=== PATIENT | female | born 1980 | race Caucasian/White ===

== ENCOUNTER 2020-01-06 18:46 | Emergency (ER) | payer MEDICARE ==
[~2020-01-06] VITALS: Ht 160 cm; Wt 117.9 kg
--- NOTE | 2020-01-06 19:32 | Emergency Department Note ---
History of Present Illnes History of Present Illness Chief Complaint: Back Pain History of Present Illness This is a 39 year old female, with no significant past medical history, who presents with a 2 day history of acute left-sided low back pain. 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 She occasionally has some pain in her back, but she has not had any history of chronic back pain or pain to this degree. She states that the pain is located to the left of the mid lumbar spine, in the paraspinal muscles, and radiates down into the upper buttock, and down the left lower extremity. Pain is worse if she lifts the left leg and with any movement. She denies any numbness, tingling, lower extremity weakness, or bowel or bladder incontinence. She has been taking ibuprofen 800 mg twice daily, without relief of the pain. Patient's adult son drove her to the ED, and assisted her inside, using one of our wheelchairs. 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 Tender Required: No Onset (how long ago): day(s) (2) Location: left low back Quality: sharp, stabbing, tight Radiation: Reports extremity (LLE) Severity: severe (10) Onset quality: sudden Duration (how long): day(s) (2) Timing of current episode: constant Progression: worsening Chronicity: new Context: Denies recent illness, Denies recent surgery, Denies trauma/injury Relieving factors: none Exacerbating factors: movement Associated symptoms: Denies fever/chills, Denies nausea/vomiting, Denies weakness Treatments prior to arrival: other (Tylenol) Risk factors: morbid obesity Past Medical/Family History Physician Review I have reviewed the patient's past medical and family history. Any updates have been documented here. Past Medical History Recent Fever: No Clinical Suspicion of Infectio: No New/Unexplained Change in Ment: No Past Medical History: None Past Surgical History: None Social History Smoking Cessation: Current every day smoker Alcohol Use: Occasional Any Illegal Drug Use: Yes (marijuana) TB Exposure/Symptoms: No Physically hurt or threatened: No Family History Family history of heart diseas: No Other Last Tetanus: unknown Any Pre-Existing Lines (PICC,: No Is patient up to date on immun: No Review of Systems Review of Systems Constitutional: Reports no symptoms EENTM: Reports no symptoms Cardiovascular: Reports no symptoms Respiratory: Reports no symptoms Gastrointestinal: Reports no symptoms Genitourinary: Reports no symptoms (no bowel of bladder incontinence) Musculoskeletal: Reports as per HPI Integumentary: Reports no symptoms Neurological: Denies numbness, Denies paresthesia, Denies pre-existing deficit, Denies tingling, Denies weakness Psychological: Reports no symptoms Review of other systems: All other systems negative Physical Exam Related Data Allergies: Coded Allergies: No Known Allergies (Unverified , 01/06/20) Vital signs reviewed: Yes Physical Exam CONSTITUTIONAL Constitutional: Present well-developed, Present well-nourished, Present morbidly obese HENT HENT: Present normocephalic, Present atraumatic, Present oropharynx clear/moist, Present nose normal HENT L/R: Present left ext ear normal, Present right ext ear normal EYES Eyes: Reports PERRL, Reports conjunctivae normal NECK Neck: Present ROM normal PULMONARY Pulmonary: Present effort normal, Present breath sounds normal CARDIOVASCULAR Cardiovascular: Present regular rhythm, Present heart sounds normal, Present capillary refill normal, Present normal rate GASTROINTESTINAL GENITOURINARY SKIN Skin: Present warm, Present dry MUSCULOSKELETAL Musculoskeletal: Present tenderness (tenderness to palpation of the left mid lumbar paraspinal muscles and left upper gluteus; there is no tenderness in the left sciatic notch, and no thoracic or lumbar vertebral point tenderness.) NEUROLOGICAL Neurological: Present alert, Present oriented x 3, Present abnormal gait (difficulty standing, due to the pain); Absent sensory deficit PSYCHOLOGICAL Results Laboratory Lab results reviewed: Yes Laboratory comments UA - neg except for trace leuk. UPT - negative; Assessment & Plan Medical Decision Making MDM -Discussed with patient that her pain is located in the soft tissue of the lumbar paraspinal muscles, and that a plain x-ray is unlikely to be revealing as to the etiology of her symptoms. She denies any specific known injury, and there is no vertebral point tenderness. It seems that she's having some muscle spasm, which is contributing to her pain, and likely the radicular symptoms. Patient's pain improved dramatically following the dose of Toradol, cyclobenzaprine, and Starke here in the ED. Her pain is down to a 6 out of 10, shortly after receiving the medications. She was grateful for the relief, and appeared much more comfortable. - No work for the next 3 days - Avoid lifting anything more than 10 pounds, until her back pain subsides. - Take medications as directed. Pain medications may cause constipation, so please increase her fluid intake, fiber intake, and use a stool softener if needed. - Apply ice to the area of pain in her back for 20 minutes every 3-4 hours, as needed, for the next 2 days, and then you may use heat. - Return to the ER if your symptoms worsen. Assessment & Plan Final Impression: (1) Low back pain (2) Lumbar radiculopathy, acute (3) Muscle spasm of back Depart Disposition: HOME, SELF-longterm Meds Active Scripts Naproxen (NAPROXEN) 250 Mg Tablet, 500 MG PO BID for back pain, #30 TAB 0 Refills Prov:JOSHUA ROMAN MD 01/06/20 Cyclobenzaprine Hcl (CYCLOBENZAPRINE HCL) 10 Mg Tablet, 10 MG PO TID PRN for muscle spasm, #20 TAB 0 Refills Prov:JOSHUA ROMAN MD 01/06/20 Acetaminophen With Codeine (TYLENOL WITH CODEINE #3 TABLET) 1 Each Tablet, 1-2 TAB PO Q6H for pain, #20 TAB 0 [address]ills [address] take and drive or operate machinery Prov:JOSHUA ROMAN MD 01/06/20 JOSHUA ROMAN MD Jan 06, 2020 19:32
[2020-01-06] MEDS ORDERED: KETOROLAC TROMETHAMINE 30 MG/ML VIAL IM ONE (20:00)
[2020-01-06] MEDS ORDERED: HYDROCODONE/APAP 5MG-325MG TAB PO ONE (20:00)
[2020-01-06] MEDS ORDERED: CYCLOBENZAPRINE HCL 10 MG TAB PO ONE (20:00)
[2020-01-06] MEDS ORDERED: HYDROCODONE/APAP 5MG-325MG TAB ONE (20:03)
[2020-01-06] MEDS ORDERED: CYCLOBENZAPRINE HCL 10 MG TAB ONE (20:03)
[2020-01-06] MEDS ORDERED: KETOROLAC TROMETHAMINE 60 MG/2 ML VIAL ONE (20:03)
--- OUTSIDE RECORDS SUMMARY | 2020-01-06 20:06 | XMS REPORT | Summary of Care ---
Author Author [facility] - Health Organization [facility] - Health Address Unknown Phone Unavailable Care Team Providers Care Ham Doctor Name Role Phone Ebony Palacios [facility] PCP [phone] Reason for Visit * Reason Comments Lab Results Encounter Details Care Team Description Date Type Department Ebony Palacios, [facility] [address] [place] [address] Lab Results 01/06/[address], [address] [place] [address] Allergies No Known Allergiesdocumented as of this encounter (statuses as of 01/06/2020) Medications End Date Status Medication Sig Dispensed Refills Start Date 01/13/2020 Active metroNIDAZOLE 500 mg Take 1 tablet 14 tablet 0 tabletIndications: BV by mouth 2 0 (bacterial vaginosis) (two) times daily for 7 days. documented as of this encounter (statuses as of 01/06/2020) Active Problems Problem Noted Date BMI 45.0-49.9, adult 01/05/2020 Family history of diabetes mellitus 01/05/2020 History of anxiety 01/05/2020 History of depression 01/05/2020 Tobacco use disorder 01/05/2020 Excessive or frequent menstruation 01/05/2020 documented as of this encounter (statuses as of 01/06/2020) Social History Date Tobacco Use Types Packs/Day Years Used Current Every Day Smoker Cigarettes 0.25 27 Smokeless Tobacco: Never Used Drinks/Week oz/Week Comments Alcohol Use 2 Glasses of wine 2.0 Yes Sex Assigned at Date Recorded Not on file Date Recorded COVID-19 Exposure Response 01/05/2020 1:53 PM CDT In the last month, have you been in contact with No / Unsure someone who was confirmed or suspected to have Coronavirus / COVID-19? documented as of this encounter Last Filed Vital Signs Not on filedocumented in this encounter Plan of Treatment Care Team Description Date Type Specialty Loraine Moon, LIZBETH [address] [address] [phone] 01/20/2020 Office Visit OB [facility] Maintenance Due Date Last Done Comments PNEUMOCOCCAL 0-64 YEARS 1985 COMBINED SERIES (1 of 1 - PPSV23) DTaP,Tdap,and Td Vaccines 1998 (1 - Tdap) PAP SMEAR 02/18/2000 Breast Cancer Screening 2019 (MAMMOGRAM) INFLUENZA VACCINE (#1) 2020 Depression Screening 01/04/2021 01/05/2020 documented as of this encounter Results Not on filedocumented in this encounter Visit Diagnoses Diagnosis BV (bacterial vaginosis) - Primary Vaginitis and vulvovaginitis, unspecifi ed documented in this encounter Insurance Type Payer Benefit Subscriber ID Effective Phone Address Plan / Dates Group Medicaid [employer] [place] [employer] [id number] 2019-P [phone] [address] [place] [id number] [place] [address] Medicaid [employer] [place] [employer] [id number] 2019-P [phone] [address] [place] [address] documented as of this encounter
--- OUTSIDE RECORDS SUMMARY | 2020-01-06 20:06 | XMS REPORT | Continuity of Care Document ---
Author Author [facility] Organization [facility] Address [address] [place] [address] Phone Unavailable Care Team Providers Care Systems Consultant Name Role Phone Ce Thompson [employer] [phone] Problems This patient has no known problems. Allergies, Adverse Reactions, Alerts This patient has no known allergies or adverse reactions. Medications This patient has no known medications. Procedures This patient has no known procedures. Encounters Start Date/Time End Date/Time Encounter Type Admission Type [facility] Care Department Encounter ID Source 2020-01-06 00:00:00 2020-01-06 00:00:00 Telephone Ebony Estrella [facility] HALL MANAGER [facility] [id number] 2020-01-05 13:50:42 2020-01-05 15:07:14 Office Visit Ebony Del Cid [facility] HALL MANAGER [facility] [id number] Results This patient has no known results.
--- OUTSIDE RECORDS SUMMARY | 2020-01-06 20:06 | XMS REPORT | Summary of Care ---
Author Author [facility] - [facility] Organization [facility] - [facility] Address Unknown Phone Unavailable Care Team Providers Care Hazardous Materials Handler Name Role Phone Pcp, Patient Does Not Have A PCP Encounter Details Care Team Description Date Type Department Doctor Unassigned, [place] [address] [place] [phone] 01/05/2020 Orders Only [facility] [address] [place] [address] Allergies No Known Allergiesdocumented as of this encounter (statuses as of 01/05/2020) Medications End Date Status Medication Sig Dispensed Refills Start Date Active triamcinolone acetonide Apply to 15 g 0 0.1 % creamIndications: area(s) 2 9 Impetigo any site (two) times daily. Active mupirocin 2 % Apply to 22 g 0 ointmentIndications: area(s) 3 9 Impetigo any site (three) times daily. Active acetaminophen-codeine Take 1 tablet 10 tablet 0 (TYLENOL-CODEINE #3) by mouth 9 300-30 mg every 4 tabletIndications: (four) hours Impetigo any site as needed for Pain (scale 4-6). documented as of this encounter (statuses as of 01/05/2020) Active Problems Not on filedocumented as of this encounter (statuses as of 01/05/2020) Social History Date Tobacco Use Types Packs/Day Years Used Never Assessed Sex Assigned at Date Recorded Not on file Date Recorded COVID-19 Exposure Response 01/05/2020 1:36 PM CDT In the last month, have you been in contact with No / Unsure someone who was confirmed or suspected to have Coronavirus / COVID-19? documented as of this encounter Last Filed Vital Signs Not on filedocumented in this encounter Plan of Treatment Care Team Description Date Type Specialty Ebony Palacios, [employer] [address] [place], [place] [id number] 01/05/2020 Office Visit OB [facility] Maintenance Due Date Last Done Comments Depression Screening 1991 DTaP,Tdap,and Td Vaccines 1998 (1 - Tdap) PAP SMEAR 02/18/2000 Breast Cancer Screening 2019 (MAMMOGRAM) INFLUENZA VACCINE (#1) 2020 PNEUMOCOCCAL 0-64 YEARS Aged Out No longer elig ible based on patient's age to COMBINED SERIES complete this topic documented as of this encounter Procedures Comments Procedure Name Priority Date/Time Associated Diag nosis ASSIGNMENT OF BENEFITS Routine 01/05/2020 1:38 PM CDT documented in this encounter Results Not on filedocumented in this encounter Insurance Type Payer Benefit Subscriber ID Effective Phone Address Plan / Dates Group Medicaid [employer] [place] [employer] [id number] 2019-P [phone] [place] [id number] [place] [address] documented as of this encounter
--- OUTSIDE RECORDS SUMMARY | 2020-01-06 20:06 | XMS REPORT | Summary of Care ---
Author Author [facility] - Health Organization [facility] - [facility] Address Unknown Phone Unavailable Care Team Providers Care Production Floater Name Role Phone Ebony Palacios [facility] PCP [phone] Reason for Referral * Radiology Services (Routine) Referred By Contact Referred To Contact Status Reason Specialty Diagnoses / Procedures Ebony Palacios [address] [address] New Request Diagnostic Diagnoses Radiology Excessive or frequent menstruation P rocedures US TRANSVAGINAL * Radiology Services (Routine) Referred By Contact Referred To Contact Status Reason Specialty Diagnoses / Procedures Ebony Palacios [address] [phone] New Request Diagnostic Diagnoses Radiology Breast cancer screening P rocedures BI SCREENING MAMMOGRAM BILATERAL Reason for Visit * Reason Comments ANNUAL EXAM Encounter Details Care Team Description Date Type Department Ebony Palacios [facility] [address] [place] [address] Encounter for other general counseling o r advice on contraception (Primary Dx); Well woman exam; Screening examination for STD (sexually transmitted disease); BMI 45.0-49.9, adult; Breast cancer screening; Excessive or frequent menstruation; Vaginal odor; Tobacco use disorder; History of depression; History of anxiety; Family history of diabetes mellitus; Abdominal pain, periumbilical 01/05/2020 Office Visit [facility] [address], [address] [place] [address] Allergies No Known Allergiesdocumented as of this encounter (statuses as of 01/05/2020) Medications End Date Status Medication Sig Dispensed Refills Start Date 01/05/2020 Discontinued (Condition no l onger warrants) triamcinolone acetonide Apply to 15 g 0 0.1 % creamIndications: area(s) 2 9 Impetigo any site (two) times daily. 01/05/2020 Discontinued (Condition no l onger warrants) mupirocin 2 % Apply to 22 g 0 ointmentIndications: area(s) 3 9 Impetigo any site (three) times daily. 01/05/2020 Discontinued (Condition no l onger warrants) acetaminophen-codeine Take 1 tablet 10 tablet 0 (TYLENOL-CODEINE #3) by mouth 9 300-30 mg every 4 tabletIndications: (four) hours Impetigo any site as needed for Pain (scale 4-6). documented as of this encounter (statuses as of 01/05/2020) Active Problems Problem Noted Date BMI 45.0-49.9, adult 01/05/2020 Family history of diabetes mellitus 01/05/2020 History of anxiety 01/05/2020 History of depression 01/05/2020 Tobacco use disorder 01/05/2020 Excessive or frequent menstruation 01/05/2020 documented as of this encounter (statuses as of 01/05/2020) Social History Date Tobacco Use Types Packs/Day Years Used Current Every Day Smoker Cigarettes 0.25 27 Smokeless Tobacco: Never Used Tobacco Cessation: Ready to Quit: No; Co unseling Given: Yes Drinks/Week oz/Week Comments Alcohol Use 2 Glasses of wine 2.0 Yes Sex Assigned at Date Recorded Not on file Date Recorded COVID-19 Exposure Response 01/05/2020 1:53 PM CDT In the last month, have you been in contact with No / Unsure someone who was confirmed or suspected to have Coronavirus / COVID-19? documented as of this encounter Last Filed Vital Signs Reading Time Taken Comments Vital Sign 112/52 01/05/2020 1:54 PM CDT Blood Pressure 74 01/05/2020 1:54 PM CDT Pulse 36.9 C (98.5 F) 01/05/2020 1:54 PM CDT Temperature 20 01/05/2020 1:54 PM CDT Respiratory Rate - - Oxygen Saturation - - Inhaled Oxygen Concentration 122.5 kg (270 lb) 01/05/2020 1:54 PM CDT Weight 160 cm (5' 3") 01/05/2020 1:54 PM CDT Height 47.83 01/05/2020 1:54 PM CDT Body Mass Index documented in this encounter Patient Instructions * Patient Instructions* Ebony Palacios, TRACK LAYING SUPERVISOR - 01/05/2020 1:45 PM CDT Patient Education Breast Health: Breast Self-Awareness What is breast self-awareness? Breast self-awareness is knowing how your breasts normally look and feel. Your b reasts change as you go through different stages of your life. So its importa nt to learn what is normal for your breasts. Knowing about your breasts helps yo u spot any changes in them right away. Tell your healthcare provider about any c hanges. Why is breast self-awareness important? Many experts now say that women should focus on breast self-awareness instead of doing a breast self-examination (BSE). These experts include the [place] [employer] and the [place] [employer] Gynec[employer]. Some exp erts even advise not teaching women to do a BSE. Thats because research hasn t shown a clear benefit to doing BSEs. Breast self-awareness is different than a BSE. It isnt about following a cert ain method and schedule. Its about knowing what's normal for your breasts. Th at way you can spot even small changes right away. If you see any changes, tell your healthcare provider. Changes to look for Call your healthcare provider if you find any changes in your breasts that worry you. These changes may be: A lump Nipple discharge other than breastmilk, especially if it's bloody Swelling A change in size or shape Skin changes, such as redness, thickening, or dimpling of the skin Swollen lymph nodes in the armpit Nipple problems, such as pain or redness If you find a lump Call your provider if you find lumpiness in one breast. Also call if you feel so mething different in the tissue or feel a definite lump. Sometimes lumpiness may be due to menstrual changes. But there may be reason for concern. Your provider may want to see you right away if you have: Nipple discharge that is bloody Skin changes on your breast, such as dimpling or puckering Its okay to be upset if you find a lump. Be sure to call your provider right away. Remember that most breast lumps are benign. This means they are not cancer . Jose last reviewed this educational content on 12/25/201619993768-1120 [employer]. [address] [place] [address] 7. All rights reserved. This information is not intended as a substitute for pro fessional medical care. Always follow your healthcare professional's instruction s. Patient Education 4 Steps for Eating Healthier Changing the way you eat can improve your health. It can lower your cholesterol and blood pressure, and help you stay at a healthy weight. Your diet doesnt h ave to be bland and boring to be healthy. Just watch your calories and follow th maurice steps: Step 1. Eat fewer unhealthy fats Choose more fish and lean meats instead of fatty cuts of meat. Skip butter and lard, and use less margarine. Pass on foods that have palm, coconut, or hydrogenated oils. Eat fewer high-fat dairy foods like cheese, ice cream, and whole milk. Get a heart-healthy cookbook and try some low-fat recipes. Step 2.Go light on salt Keep the saltshaker off the table. Limit high-salt ingredients, such as soy sauce, bouillon, and garlic salt. Instead of adding salt when cooking, season your food with herbs and flavorin gs. Try lemon, garlic, and onion, or salt-free herb seasonings. Limit convenience foods, such as boxed or canned foods and restaurant food. Read food labels and choose lower-sodium options. Step 3. Limit sugar Pause before you add sugars to pancakes, cereal, coffee, or tea. This include s white and brown table sugar, syrup, honey, and molasses. Cut your usual amount by half. Use non-sugar sweeteners. Stevia, aspartame, and sucralose can satisfy a swee t tooth without adding calories. Swap out sugar-filled soda and other drinks. Buy sugar-free or low-calorie be verages. Remember water is always the best choice. Read labels and choose foods with less added sugar. Keep in mind that dairy f oods and foods with fruit will have some natural sugar. Cut the sugar in recipes by 1/3 to 1/2. Boost the flavor with extracts like a lmond, vanilla, or orange. Or add spices such as cinnamon or nutmeg. Step 4. Eatmore fiber Eat fresh fruits and vegetables every day. Boost your diet with whole grains. Go for oats, whole-grain rice, and bran. Add beans and lentils to your meals. Drink more water to match your fiber increase to help prevent constipation. Bucmi last reviewed this educational content on 10/25/201619998029-1927 [employer]. [address] [place] [address] 7. All rights reserved. This information is not intended as a substitute for pro fessional medical care. Always follow your healthcare professional's instruction s. Patient Education Weight Management: Exercise and Activity Studies show that people who exercise are the most likely to lose weight and abida p it off. Exercise saunders calories. It helps build muscle to make your body stron david. Make exercise an important part of your weight-management plan. Make activity part of your day You may not think you have the time to exercise. But you can work activity into your daily lifeyou just need to be committed. Take 10 minutes out of your leatha ch hour to take a walk. Walk to the [employer] to get your paper instead of [employer] g it delivered. Make it a habit to take the stairs instead of the elevator. Park in a far away parking spot instead of the closest. Youll be surprised at how fast these little changes can make a difference. Some people really cannot walk very far, and tire out quickly with exercise. Ins tead of becoming discouraged, resolve to do what you can do, and work to make th at a regular frequent habit. The benefits of exercise Exercise offers many benefits including: Exercise increases your metabolism (the speed at which your body saunders calori es). Regular exercise can increase the amount of muscle in your body. Muscle saunders calories faster than fat. The more muscle you have, the more calories you burn. Exercise gives you energy and curbs your appetite. Exercise decreases stress and helps you sleep better. Find out for yourself w hat time of day works best for you. Make exercise fun Exercise can be fun. Choose an activity you enjoy. You may even get a friend to do it with you: Take a resistance-training or aerobics class Join a team sport Take a dance class Walk the dog Ride a bike If you have health problems, be sure to ask your healthcare provider before you start an exercise program. Have a montessori paraprofessional help you develop a plan t hats safe for you. Bucmi last reviewed this educational content on 08/25/201719996712-2096 [employer]. [address] [place] [address] 7. All rights reserved. This information is not intended as a substitute for pro fessional medical care. Always follow your healthcare professional's instruction s. Patient Education Weight Management: Healthy Eating Food is your bodys fuel. You cant live without it. The dover is to give your body enough nutrients and energy without eating too much. Reading food labels c an help you make healthy choices. Also, learn new eating habits to manage your w eight. Nutrition labels are being redesigned by the FDA to emphasize the number of calories being consumed as well as the amount of more nutrients, such as adde d sugars, vitamin D, and potassium. All the values on the label are based on one serving. The serving size is the av erage portion. Remember to multiply the values on the label by the number of ser vings you eat. Eat less fat A gram of fat has almost2.5 timesthe calories of a gram of protein or carboh ydrates.Try to balance your food choices so that only 20% to35% of your bill tremaine comes from totalfat. This means an average of 2to 3grams of fat f or each 100 calories you eat. Eat more fiber High-fiber foods are digested more slowly than low-fiber foods, so you feel full longer.Try to get at least 25 grams of fiber each day for a 2000 calorie diet. Foods high in fiber include: Vegetables and fruits Whole-grain or bran breads, pastas, and cereals Legumes (beans) and peas As you start to eat more fiber, be sure to drink plenty of water. It will help k eep your digestive system working smoothly. Tips Do's and don'ts include: Dont skip meals. This often leads to overeating later on. Its best to s pread your eating throughout the day. Eat a variety of foods, not just a few favorites. If you find yourself eating when youre not hungry, ask yourself why. Many of us eat when were bored, stressed, or just to be polite. Listen to your bod y. If youre not hungry, get busy doing something else instead of eating. Eat slower, shooting for 20 to 30 minutes for each meal.It takes 20 minutes for your stomach to tell your brain that its full. Slow eaters tend to eat l ess and are still satisfied, while fast eaters may tend to be overeaters. Pay attention to what you eat. Dont read or watch TV during your meal. Bucmi last reviewed this educational content on 08/25/201719995412-9330 [employer]. [address] [place] [address], [place], [place] [address]. All rights reserved. This information is not intended as a substitute for pro fessional medical care. Always follow your healthcare professional's instruction s. Patient Education Weight Management: Overcoming Your Barriers You may have many reasons why youre not ready to lose weight. You may not fee l you have the time or the skills. You may be afraid of losing weight and gainin g it back again. Well, you can lose weight. And you can keep the weight off, if you make changes slowly and stick with them.Remember that you may never find t he perfect time to lose weight. Decide that the right time to be healthier is no w. Common barriers Barrier 1: I dont want to deny myself. Barrier Buster: You dont have to! Moderation is the dover: Watch portion sizes and know when you're eating more than one serving. Plan to ask for a doggy bag when you eat out. Have just one. Read the labels on foods to know what foods may be hiding calories or salt. Choose lower-fat and lower-calorie versions of your favorites. Use a small plate instead of a normal-sized plate. Barrier 2: I lost weight before but I gained it right back. Barrier Buster: Make this time different: List what worked and didnt worklast time and what you can try this time. Choose changes that you are willing to stick with. Work exercise into your weight-loss plan. Be realistic about what is possible.Your plan has to fit into your life in a balanced way that works for you. Barrier 3: I dont have the time to be active. Barrier Buster: It takes just a few minutes a day! Be active with a pet or the kids. Block off activity time in your schedule. Borrow some time that you usually spend watching TV. You are too important not to take time to exerciseit is your life! Feel good about yourself Do you eat more because you feel bad about yourself, then feel even worse as you gain weight? This is a vicious cycle. Breaking this cycle is not easy. You may need group support or counseling. Always remember that you are a valuable person, no matter what size or shape you are. Do you have a health problem? If so, dont use it as an excuse for not losing weight. Ask your healthcare provider or dietitian about methods to lose weight t hat are safe for you. For example, even if you have severe arthritis, it may be easier for you to exercise in a pool. Get advice from a montessori paraprofessional. Bucmi last reviewed this educational content on 08/25/201719998791-1510 [employer]. [address] [place], [place] [address] 7. All rights reserved. This information is not intended as a substitute for pro fessional medical care. Always follow your healthcare professional's instruction s. Patient Education Mammography Mammographyis an X-ray exam of your breast tissue. The image it makes is austin d a mammogram. A mammogram can help find problems with your breasts,such as cy sts or cancer. Mammography is the best breast cancer screening tool available. Be proactive Have screening mammograms and professional breast exams as often as your healthc are provider advises. Also, be sure you know how your breasts normally look and feel. This makes it easier to notice any changes. Report changes to your healthc are provider as soon as possible. How do I get ready for a mammogram? Schedule the test for 1 week after your period.Your breasts are less sore a nd dense then. Make sure your clinic getsimages of your last mammogram if it was done some where else. This lets the provider compare the 2 sets of images for any changes. On the morning of your test,dont use deodorant,powder,or perfume. Wear a top that you can take off easily. What happens during a mammogram? You will need to undress from the waist up. The technologist will position your breast to get the best test results. Each of your breasts will be compressed one at a time. This helps get the mos t complete X-ray image. Your breasts will be repositioned to get at least 2 separate views of each br east. What happens after a mammogram? More X-rays or an ultrasound are sometimes needed. If not done at the time of your initial mammogram, youll be called to schedule them. You should get your test results in writing. Ask about this at your appointme nt. Have mammograms as often as your healthcare provider advises. What to tell your provider Tell your provider if: Youre or think you may be You have breast implants You have any scars or moles on or near your breasts Youve had a breast biopsy or surgery Youre Bucmi last reviewed this educational content on 11/24/201819993772-4173 [employer]. [address] [place] [address] 7. All rights reserved. This information is not intended as a substitute for pro fessional medical care. Always follow your healthcare professional's instruction s. Patient Education Planning to Quit Smoking Your healthcare provider may have told you that you need to give up tobacco. Onl y you can decide if and when you are ready to quit. Quitting is hard to do. But the benefits will be worth it. When youdecide to quit, come up with a plan graciela ts right for you. Discuss your plan with your healthcare provider. And talk w ith your provider about medicines to help you quit. Line up support To quit smoking, youll need a plan and some help. Pick a date in the next 2 t o 4 weeks to quit. Use the time between now and that date to arrange for support . Classes and counselors. Quit-smoking classes transformation coach people like you through e process. Get to know others in a class. And support each other beyond the clas s. Phone counseling also helps you keep on track. Ask your healthcare provider, local hospital, or public health department to put you in touch with a class and a phone counselor. Family and friends. Tell your family and friends about your quit date. Ask th em to support your change. If they smoke, only see them in smoke-free places. Do n't allow smoking in your home and car. Be careful with these products Finding something to replace cigarettes may be hard to do. Some things may be as harmful as cigarettes. These include: Smokeless (chewing) tobacco. This is just as harmful as regular tobacco. Toba client account manager should not be used as a substitute for cigarettes. Herbal medicines or teas. These may affect how your body handles nicotine. Ta lk with your healthcare provider before using these products. E-cigarettes. E-cigarettes are not approved by the FDA as a quit-smoking aid. So far, the research shows there is limited evidence that e-cigarettes are effe ctive for helping smokers quit. They may also have substances that can cause can cer or life-threatening lung conditions. Experts advise not to use these product s. Quit-smoking products Many products can help you quit smoking. Some are prescription medicines that he lp curb your cravings and withdrawal symptoms. Other products slowly lessen the level of nicotine your body absorbs. Nicotine is the highly addictive substance found in cigarettes, cigars, and chewing tobacco. Nicotine replacement products can help get your body used to slowly decreasing amounts of nicotine after you q uit smoking. These products include a nicotine patch, gum, lozenge, nasal spray, and inhaler. Always follow the directions for your medicine or product carefull y. Your healthcare provider may tell you to start taking the prescription medici ne a week before you plan to quit. Don't smoke while you use nicotine products. Doing so can harm your health. To learn more www.cdc.gov/tobacco/quit_smoking/ 395-DCJA-RPO (345-117-5221) www.smokefree.gov 617-23G-PBAN (744-282-3889) www.lung.org/stop-smoking/ 800-LUNGUSA (805-730-5211) Jose last reviewed this educational content on 05/27/201819992785-4669 [employer]. [address] [place] [address], [place] [address]. All rights reserved. This information is not intended as a substitute for pro fessional medical care. Always follow your healthcare professional's instruction s. Patient Education The Benefits of Living Smoke Free What do you want to gain from quitting? Check off some reasons to quit. Health benefits ___ Improve my ability to breathe without coughing or shortness of breath ___ Reduce my risk of lung cancer, heart disease, chronic lung disease ___ Have fewer wrinkles and softer skin ___ Improve my sense of taste and smell ___ For womenreduce the risk of having a miscarriage, stillbirth, premature , or [id number] baby Personal benefits ___ Feel more in control of my life ___ Have better-smelling hair, breath, clothes, home, and car ___ Save time by not having to take smoke breaks, buy cigarettes, or bravo for a light ___ Have whiter teeth Family benefits ___ Reduce my childrens respiratory tract infections ___ Set a good example for my children ___ Reduce my familys cancer risk Financial benefits ___ Save hundreds of dollars each year that would be spent on cigarettes ___ Save money on medical bills ___ Save on life, health, and car insurance premiums Those dollars add up! Cigarettes are expensive, and getting more expensive all the time. Do you realiz e how much money you are spending on cigarettes per year? What is the average am ount you spend on a pack of cigarettes? What is the average number of packs that you smoke per day? Using your answers to these questions, fill in this formula to help you find out: ($ per pack) ( number of packs per day)(365 days) = $ yearly cost of smoking Besides tobacco, there are other costs, including extra cleaning bills and repla cement costs for clothing and furniture; medical expenses for smoking-related il lnesses; and higher health, life, and car insurance premiums. Cigars and pipes count too! Cigars and pipes are also dangerous. So are smokeless (chewing) tobacco and snuf f. All of these products contain nicotine, a highly addictive substance that has harmful effects on your body. Quitting smoking means giving up all tobacco prod ucts. For more information https://smokefree.gov/tdqi-ib-yh-expert National Cancer [place] Smoking Quitline: 195-48T-ZETR (479-441-0846) Jose last reviewed this educational content on 06/27/201619990862-5410 [employer]. [address] [place] [address] 7. All rights reserved. This information is not intended as a substitute for pro fessional medical care. Always follow your healthcare professional's instruction s. documented in this encounter Progress Notes * Ebony Palacios FNP - 01/05/2020 1:45 PM CDT Chief complaint: Chief Complaint Patient presents with ANNUAL EXAM Contraception Patient is here for contraceptive management and well woman visit. The patient's primary symptoms include contraceptive counseling and genital odor. The patient 's pertinent negatives include no breast complaints, genital itching, genital le sions, pelvic pain, vaginal bleeding or vaginal discharge. This is a chronic pro blem. The current episode started more than 1 year ago (2-3 years). The problem has been unchanged. The patient is experiencing no pain. She is not . As sociated symptoms include abdominal pain. Pertinent negatives include no back pa in, chills, constipation, cramps, diarrhea, dyspareunia, dysuria, fever, frequen cy, headaches, hematuria, light-headedness, nausea, rash, sore throat, urgency o r vomiting. Associated symptoms comments: Mood changes associated with frequent menses Burning sensation periumbilical associated with menses. The vaginal discharge wa s normal. The vaginal bleeding is occurring between menses. Nothing aggravates t he symptoms. She has tried nothing for the symptoms. No, her partner does not galindo ve an STD. She uses condoms (considering hormonal control) for contracepti on. Her menstrual history has been irregular. Patient reports sexually active. Histories OB History Para Term AB Living 3 3 3 3 SAB TAB Ectopic Multiple Live Births 3 # Outcome Date GA Lbr Delvin/2nd Weight Sex Delivery Anes PTL Lv 3 Term 01/20/05 40w0d 6 lb 9 oz (2.977 kg) M CS-Unspec EPI N JOAQUIN 2 Term 07/03/02 40w0d 7 lb 9 oz (3.43 kg) M CS-Unspec EPI N JOAQUIN 1 Term 01/08/01 40w0d 7 lb 6 oz (3.345 kg) M CS-Unspec EPI N JOAQUIN Past Medical History: Diagnosis Date Anxiety since child Depression 2017 Family history of diabetes mellitus 01/05/2020 Menstrual disorder Trauma as child Family History Problem Relation Age of Onset Arthritis Mother Diabetes Mother Psychiatry Mother Cancer Father Hypertension Father Arthritis Maternal Grandmother Depression Maternal Grandfather Heart Maternal Grandfather High cholesterol Maternal Grandfather Hypertension Maternal Grandfather Family Status Relation Name Status Mo Fa lung, luekemia MGMo MGFa PGMo PGFa Past Surgical History: Procedure Laterality Date ABDOMEN SURGERY PROC UNLISTED SECTION 2000, 2002, 2004 Social History Socioeconomic History Marital status: Single Spouse name: Not on file Number of children: Not on file Years of education: Not on file Highest education level: Not on file Occupational History Not on file Social Needs Financial resource strain: Not on file Food insecurity Worry: Not on file Inability: Not on file Transportation needs Medical: Not on file Non-medical: Not on file Tobacco Use Smoking status: Current Every Day Smoker Packs/day: 0.25 Years: 27.00 Pack years: 6.75 Types: Cigarettes Smokeless tobacco: Never Used Substance and Sexual Activity Alcohol use: Yes Alcohol/week: 2.0 standard drinks Types: 2 Glasses of wine per week Drug use: Yes Types: Marijuana Comment: daily Sexual activity: Yes Partners: Male control/protection: None Comment: last intercourse: 12/25/2019 Lifestyle Physical activity Days per week: Not on file Minutes per session: Not on file Stress: Not on file Relationships Social connections Talks on phone: Not on file Gets together: Not on file Attends anglican service: Not on file Active member of club or organization: Not on file Attends meetings of clubs or organizations: Not on file Relationship status: Not on file Intimate partner violence Fear of current or ex partner: Not on file Emotionally abused: Not on file Physically abused: Not on file Forced sexual activity: Not on file Other Topics Concern Not on file Social History Narrative States she feels safe at home. Denies sexual abuse and domestic violence. Lives with two sons. Third son given up for adoption day of Social History Substance and Sexual Activity Sexual Activity Yes Partners: Male control/protection: None Comment: last intercourse: 12/25/2019 Labs Labs are pending. Radiology Radiology pending. Allergies Gina has No Known Allergies. Medications Gina currently has no medications in their medication list. Review of Systems Constitutional: Negative for appetite change, chills, fatigue, fever and unexpec crista weight change. HENT: Negative for sore throat. Eyes: Negative for visual disturbance. Respiratory: Negative for shortness of breath. Breasts: Negative for discharge, mass and pain. Cardiovascular: Negative for chest pain. Gastrointestinal: Positive for abdominal pain. Negative for constipation, diarrh ea, nausea and vomiting. Genitourinary: Positive for menstrual problem. Negative for dysuria, urgency, fr equency, hematuria, vaginal bleeding, vaginal discharge, pelvic pain and dyspare unia. Menstrual hx has been irregular for "years" per patient States 2-3 years ago started with menses 3x per month States she will have menses x 7-10 days, stops bleeding for 1 week and then blee ding will restart x 2 days. Flow ranges from light to heavy Associated symptoms: vaginal odor, periumbilical abdominal pain, mood swings Musculoskeletal: Negative for back pain. Skin: Negative for rash. Neurological: Negative for dizziness, syncope, light-headedness and headaches. Psychiatric/Behavioral: Denies depression or domestic violence today States hx of depression/anxiety; diagnosed previously with manic depressive diso rder currently controlled without meds Reports mood swings with menses BP 112/52 | Pulse 74 | Temp 36.9 C (98.5 F) (Oral) | Resp 20 | Ht 5' 3" (1.6 m) | Wt 270 lb (122.5 kg) | BMI 47.83 kg/m Pregravid BMI: Could not be calculated Physical Exam Vitals reviewed. Constitutional: She is oriented to person, place, and time. She appears well-dev eloped, well-nourished and well-groomed. Her body habitus is obese. She has no d eformities. No acute distress Neck: No tenderness and no mass. No thyroid nodules and no thyromegaly palpated. No neck adenopathy. Cardiovascular: Regular rate and rhythm. No murmur auscultated. No peripheral ed adan present. Pulmonary/Chest: Breath sounds clear to auscultation. Normal inspiratory effort. Abdominal: Abdomen is soft. No mass palpated. No tenderness present. There is no hepatosplenomegaly. There is no rigidity and no guarding. No hernia palpated or inspected. Neuro/Psychiatric: She has a normal mood and affect. She is oriented to person, place, and time. Skin: Skin normal. No lesion and no rash present. Lymphadenopathy: No neck adenopathy present. No axillary adenopathy present. Breast: Right breast exhibits no mass, no nipple discharge and no tenderness. Le ft breast exhibits no mass, no nipple discharge and no tenderness. Breasts are s ymmetrical. External genitalia: Normal external genitalia appropriate for age. Normal hair d istribution. No labial lesion. Vagina:Normal vagina. No lesion inspected. No abnormal vaginal discharge found. No lesions in the vagina. Cervix: Normal cervix. No lesion. No tenderness and no discharge present. Uterus: Uterus is normal size and non-tender. Adnexa: Right adnexa without tenderness or mass. Left adnexa without tenderness or mass. Assessment/Plan Encounter for other general counseling or advice on contraception (primary enco unter diagnosis) Comment: see hpi Plan: POCT TEST Continue condoms for now until EMB and USG done. Well woman exam Comment: 39 yo Plan: PAP Smear-Liquid Based, HIGH RISK HPV-THIN PREP, CBC WITH DIFF, RUBELLA SCREEN (JAMIE) IGG, PAP Smear-Liquid Based, HIGH RISK HPV-THIN PREP, CBC WITH DIFF, RUBELLA SCREEN (JAMIE) IGG Encourage green leafy vegetables, lean meats and fruit in diet. Avoid fat ty, fried, sugary foods. Increase H2O intake (1/2 body weight in ozs). Exercis e 30 minutes daily x 7 days/week as tolerated. SBE monthly. Follow up 1 year Screening examination for STD (sexually transmitted disease) Comment: desires testing Plan: GC & CHLAMYDIA AMPLIFIED ASSAY, GALV ONLY - SYPHILIS IGG/IGM, HIV 1/2 AG-AB WITH REFLEX, GC & CHLAMYDIA AMPLIFIED ASSAY, GALV ONLY - SYPHILIS IGG/IGM, HIV 1/2 AG-AB WITH REFLEX Safe sex practices, follow up prn BMI 45.0-49.9, adult Comment: Body mass index is 47.83 kg/m. Plan: GLYCOSYLATED HEMOGLOBIN (A1C), GLYCOSYLATED HEMOGLOBIN (A1C) Diet and exercise counseling, follow up prn Breast cancer screening Comment: 39 year-old No mammogram hx Plan: BI SCREENING MAMMOGRAM BILATERAL Excessive or frequent menstruation Comment: see hpi, ROS Mother at 52 and was still having menstrual cycles Plan: THYROID STIMULATING HORMONE, THYROID STIMULATING HORMONE, US TRANSVAGINAL Labs today, USG ordered, refer for EMB. ER warnings Vaginal odor Comment: see hpi Plan: GALV ONLY - VAGINAL PATHOGENS BY NUCLEIC ACID TESTING Genital hygiene, follow up with results Tobacco use disorder Comment: smokes 3 cigarettes daily Plans to quit, states restarted smoking 3 weeks ago Plan: offer support for cessation, follow up prn History of depression History of anxiety Comment: hx of manic depressive disorder per patient Currently controlled without meds Plan: encouraged consistent with mental health follow ups Family history of diabetes mellitus Comment: see hx Plan: A1C today, diet and exercise Abdominal pain, periumbilical Comment: see hpi, normal exam Plan: relief measures, follow up prn This visit did not involve counseling and coordination that comprised more than 50% of the visit time. SHAY Armas 01/05/2020 3:31 PM * Danielle Phan LVN - 01/05/2020 1:45 PM CDT Gina Alonso is a 39 year old female Pt here for WWE/FP check-up today. LMP: 12/09/2019 previous control: none Desired method: unsure possible condoms Last intercourse: 12/25/2019 Last pap: 2009 C/O: odor for last 2 years and abnormal menses Verbal consent obtained for HIV testing if needed. SBE, STD, and BC booklet reviewed and provided. She is to ask for reference material at check out. She voiced understanding. documented in this encounter Plan of Treatment Care Team Description Date Type Specialty Loraine Moon, LIZBETH [address] [place] [id number] [phone] 01/20/2020 Office Visit OB Satellites Date/Time Name Type Priority Associated Diag noses 01/05/2020 2:59 PM CDT PAP Smear-Liquid Based LAB Routine Well wo man exam 01/05/2020 2:59 PM CDT HIGH RISK HPV-THIN PREP LAB Routine Well w jacinto exam 01/05/2020 2:59 PM CDT GC & CHLAMYDIA AMPLIFIED LAB Routine Scree kaia examination for ASSAY STD (sexually transmitted disease) 01/05/2020 2:59 PM CDT CBC WITH DIFF LAB Routine Well woman exam 01/05/2020 2:59 PM CDT RUBELLA SCREEN (JAMIE) LAB Routine Well wo man exam IGG 01/05/2020 2:59 PM CDT GALV ONLY - SYPHILIS LAB Routine Screening examination for IGG/IGM STD (sexually transmitted disease) 01/05/2020 2:59 PM CDT HIV 1/2 AG-AB WITH REFLEX LAB Routine Scre ening examination for STD (sexually transmitted disease) 01/05/2020 2:59 PM CDT THYROID STIMULATING LAB Routine Excessive or frequent HORMONE menstruation 01/05/2020 2:59 PM CDT GLYCOSYLATED HEMOGLOBIN LAB Routine BMI 45 .0-49.9, adult (A1C) 01/05/2020 2:59 PM CDT GALV ONLY - VAGINAL LAB Routine Vaginal od or PATHOGENS BY NUCLEIC ACID TESTING Order Schedule Name Type Priority Associated Diag noses Expected: 01/05/2020, Expires: 1 BI SCREENING MAMMOGRAM IMAGING Routine Breast cancer screening BILATERAL Expected: 01/05/2020, Expires: 1 PAP Smear-Liquid Based LAB Routine Well wo man exam Expected: 01/05/2020, Expires: 1 HIGH RISK HPV-THIN PREP LAB Routine Well w jacinto exam Expected: 01/05/2020, Expires: 1 GC & CHLAMYDIA AMPLIFIED LAB Routine Scree kaia examination for ASSAY STD (sexually transmitted disease) Expected: 01/05/2020, Expires: 1 CBC WITH DIFF LAB Routine Well woman exam Expected: 01/05/2020, Expires: 1 RUBELLA SCREEN (JAMIE) LAB Routine Well wo man exam IGG Expected: 01/05/2020, Expires: 1 GALV ONLY - SYPHILIS LAB Routine Screening examination for IGG/IGM STD (sexually transmitted disease) Expected: 01/05/2020, Expires: 1 HIV 1/2 AG-AB WITH REFLEX LAB Routine Scre ening examination for STD (sexually transmitted disease) Expected: 01/05/2020, Expires: 1 THYROID STIMULATING LAB Routine Excessive or frequent HORMONE menstruation Expected: 01/05/2020, Expires: 1 GLYCOSYLATED HEMOGLOBIN LAB Routine BMI 45 .0-49.9, adult (A1C) Expected: 01/05/2020, Expires: TRANSVAGINAL IMAGING Routine Excessive or f requent menstruation Health Maintenance Due Date Last Done Comments PNEUMOCOCCAL 0-64 YEARS 1985 COMBINED SERIES (1 of 1 - PPSV23) DTaP,Tdap,and Td Vaccines 1998 (1 - Tdap) PAP SMEAR 02/18/2000 Breast Cancer Screening 2019 (MAMMOGRAM) INFLUENZA VACCINE (#1) 2020 Depression Screening 01/04/2021 01/05/2020 documented as of this encounter Procedures Comments Procedure Name Priority Date/Time Associated Diag nosis POCT TEST Routine 01/05/2020 Encounter for other general counseling or advice on contraception documented in this encounter Results * POCT TEST (01/05/2020) POCT PREG Negative On board Yes controls acceptable with C Line POCT PREG LOT # POCT PREG TEST DATE Specimen Urine - URINE, CLEAN CATCH documented in this encounter Visit Diagnoses Diagnosis Encounter for other general counseling or advice on contraception - Primary BMI 45.0-49.9, adult Body Mass Index 45.0-49.9, adult Excessive or frequent menstruation Vaginal odor Unspecified symptom associated with fem kain genital organs Tobacco use disorder History of depression Personal history of other mental disord er History of anxiety Personal history of other mental disord er Family history of diabetes mellitus Abdominal pain, periumbilical Abdominal pain, periumbilic documented in this encounter Insurance Type Payer Benefit Subscriber ID Effective Phone Address Plan / Dates Group Medicaid [facility] [id number] 2019-P [phone] [id number] [place] [address] documented as of this encounter
--- OUTSIDE RECORDS SUMMARY | 2020-01-06 20:06 | XMS REPORT | Summary of Care ---
Author Author [facility] - Health Organization [facility] - [facility] Address Unknown Phone Unavailable Care Team Providers Care Pmp Project Manager Name Role Phone Ebony Palacios [facility] PCP [phone] Reason for Referral * Radiology Services (Routine) Referred By Contact Referred To Contact Status Reason Specialty Diagnoses / Procedures Ebony Palacios [address] [address] New Request Diagnostic Diagnoses Radiology Excessive or frequent menstruation P rocedures US TRANSVAGINAL * Radiology Services (Routine) Referred By Contact Referred To Contact Status Reason Specialty Diagnoses / Procedures Ebony Palacios [address] [address] New Request Diagnostic Diagnoses Radiology Breast cancer screening P rocedures BI SCREENING MAMMOGRAM BILATERAL Reason for Visit * Reason Comments ANNUAL EXAM Encounter Details Care Team Description Date Type Department Ebony Palacios [facility] [address] [place] [address] Encounter for other general counseling o r advice on contraception (Primary Dx); Well woman exam; Screening examination for STD (sexually transmitted disease); BMI 45.0-49.9, adult; Breast cancer screening; Excessive or frequent menstruation; Vaginal odor; Tobacco use disorder; History of depression; History of anxiety; Family history of diabetes mellitus; Abdominal pain, periumbilical 01/05/2020 Office Visit [facility] [address], [address] [place] [address] Allergies No Known Allergiesdocumented as of this [...] Patient Instructions * Patient Instructions* Ebony Palacios, PLATE SETTER - 01/05/2020 1:45 PM CDT Patient Education [...] breast self-examination (BSE). These experts include the [place] [employer] and the [place] [employer] Obstetricians [employer] Gynecologists. Some exp [...] Jose last reviewed this educational content on 12/25/201619996893-4099 [employer]. [address] [place] [address] 7. All rights reserved. This information is [...] your fiber increase to help prevent constipation. Klood last reviewed this educational content on 10/25/201619999274-4270 [employer]. [address] [place] [address] 7. All rights reserved. This information is [...] to take a walk. Walk to the [employer] to get your paper instead of [employer] g it delivered. Make it a habit [...] metabolism (the speed at which your body saudners calori es). Regular exercise can increase the [...] you start an exercise program. Have a program paraprofessional help you develop a plan t hats safe for you. [employer] last reviewed this educational content on 08/25/201719992518-3560 [employer]. [address] [place] [address] 7. All rights reserved. This information is [...] read or watch TV during your meal. [employer] last reviewed this educational content on 08/25/201719994988-0812 [employer]. [address] [place] [address], [place] [address] 7. All rights reserved. This information is [...] in a pool. Get advice from a program paraprofessional. [employer] last reviewed this educational content on 08/25/201719991334-0392 [employer]. [address] [place], [place] [address] 7. All rights reserved. This information is [...] had a breast biopsy or surgery Youre [employer] last reviewed this educational content on 11/24/201819998027-5485 [employer]. [address] [place] [address] 7. All rights reserved. This information is [...] support . Classes and counselors. Quit-smoking classes life coach people like you through e process. [...] just as harmful as regular tobacco. Toba chartered accountant should not be used as a substitute [...] harm your health. To learn more www.cdc.gov/tobacco/quit_smoking/ 849-PSKO-REV (442-334-5472) www.smokefree.gov 077-37R-KGEQ (451-395-8756) www.lung.org/stop-smoking/ 800-LUNGUSA (406-516-2585) Jose last reviewed this educational content on 05/27/201819994263-2656 [employer]. [address] [place] [address], [place], [place] [address] 7. All rights reserved. This information is [...] having a miscarriage, stillbirth, premature , or kvr-qpciq-webeua baby Personal benefits ___ Feel more in [...] all tobacco prod ucts. For more information https://smokefree.gov/ljsv-ms-tm-expert National Cancer [employer] Smoking Quitline: 087-61A-TTHX (283-868-4362) Jose last reviewed this educational content on 06/27/201619999175-7135 [employer]. [address] [place] [address] 7. All rights reserved. This information is [...] file Gets together: Not on file Attends latter-day service: Not on file Active member of [...] Description Date Type Specialty Loraine Moon, LIZBETH [address] [place] [address] [phone] 01/20/2020 Office Visit OB Satellites Date/Time Name [...] Address Plan / Dates Group Medicaid [facility] [place] [facility] [id number] 2019-P [phone] [id number] [place] [address] documented as of this encounter
[2020-01-06] MEDS ORDERED: TYLENOL WITH C1 EACH PO (20:21)
[2020-01-06] MEDS ORDERED: CYCLOBENZAPRINE10 MG PO (20:24)
[2020-01-06] MEDS ORDERED: NAPROXEN250 MG PO (20:26)
== END 2020-01-06 20:45 | disposition home or self-care (01) ==
LOC: FSED 18:53
DX: M54.16 Radiculopathy, lumbar region (principal); M62.830 Muscle spasm of back; F17.210 Nicotine dependence, cigarettes, uncomplicated
CPT/HCPCS: 81003; 81025; 99283; J1885

== ENCOUNTER 2020-03-23 15:54 | Emergency (ER) | payer MEDICARE, OTHER ==
[~2020-03-23] VITALS: Ht 160 cm; Wt 90.7 kg
[~2020-03-23 15:54] MED LIST: CYCLOBENZAPRINE10 MG PO; NAPROXEN250 MG PO; TYLENOL WITH C1 EACH PO
[2020-03-23] MEDS ORDERED: KETOROLAC TROMETHAMINE 30 MG/ML VIAL IV STA (16:28)
[2020-03-23] MEDS ORDERED: KETOROLAC TROMETHAMINE 30 MG/ML VIAL ONE (16:48)
--- NOTE | 2020-03-23 17:47 | Diagnostic Imaging Report ---
EXAM: Limited Abdominal Ultrasound INDICATION: ^pain COMPARISON: None. TECHNIQUE: Transverse and longitudinal images of the upper abdomen were obtained. FINDINGS: Examination is partially limited by bowel gas. Liver: Size: 14.8 cm in the right midclavicular line, normal Appearance: Normal echogenicity, smooth contour Mass: No focal sonographic lesions given exam limitations. Gallbladder: Stones/Sludge: None Wall: 0.3 cm Appearance: No pericholecystic fluid or hydrops. Sonographic Kwok's Sign: Negative Bile Ducts: Intrahepatic Ducts: No dilatation Extrahepatic Ducts: Common bile duct measures 0.2 cm, no dilatation Pancreas: Incompletely visualized due to overlying bowel gas, but no abnormality identified involving the visualized portions of the pancreas. Right Kidney: Size: 8.7 x 4.8 x 6 cm Echogenicity: Normal Parenchymal thickness: Normal Collecting System: No hydronephrosis Stone: None Cyst/Mass: None Vessels: Aorta: Visualized portions are normal Inferior Vena Cava: Visualized portions are normal Main Portal Vein: 0.8 cm, normal size with hepatopetal flow. Free Fluid: No ascites or pleural effusion IMPRESSION: No acute sonographic abnormalities in the visualized portions of the abdomen given exam limitations. Signed by: Dr. Jp Santiago M.D. on 03/23/2020 5:44 PM
--- NOTE | 2020-03-23 17:48 | Emergency Department Note ---
History of Present Illnes History of Present Illness Chief Complaint: General Medicine Complaints History of Present Illness This is a 40 year old female Chief Complaint Comment pain under right ribs x 3 days, states pain worse w/ coughing/sneezing. denies any dysuria . 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: Car Onset (how long ago): day(s) (2) Location: ABDOMEN Quality: SHARP Radiation: Reports non-radiation Severity: moderate Onset quality: gradual Duration (how long): day(s) (2) Timing of current episode: intermittent Progression: waxing and waning Chronicity: new Context: Denies recent illness, Denies recent surgery, Denies recent immobilization, Denies recent travel, Denies trauma/injury, Denies new medications, Denies hx of DVT/PE, Denies non-compliance w/ medications, Denies other Relieving factors: none Exacerbating factors: none Associated symptoms: Denies denies other symptoms, Denies confusion, Denies chest pain, Denies cough, Denies diaphoresis, Denies fever/chills, Denies headaches, Denies loss of appetite, Denies malaise, Denies nausea/vomiting, Denies rash, Denies seizure, Denies shortness of breath, Denies syncope, Denies weakness, Denies other Treatments prior to arrival: none Past Medical/Family History Physician Review I have reviewed the patient's past medical and family history. Any updates have been documented here. Past Medical History Recent Fever: No Clinical Suspicion of Infectio: No New/Unexplained Change in Ment: No Past Medical History: None Past Surgical History: Social History Smoking Cessation: Current every day smoker Counseling Performed: Yes Alcohol Use: Occasional Any Illegal Drug Use: Yes (marijuana) Other Last Tetanus: unknown Any Pre-Existing Lines (PICC,: No Review of Systems Review of Systems Constitutional: Reports no symptoms EENTM: Reports no symptoms Cardiovascular: Reports no symptoms Respiratory: Reports no symptoms Gastrointestinal: Reports as per HPI Genitourinary: Reports no symptoms Musculoskeletal: Reports no symptoms Integumentary: Reports no symptoms Neurological: Reports no symptoms Psychological: Reports no symptoms Endocrine: Reports no symptoms Hematological/Lymphatic: Reports no symptoms Physical Exam Related Data Allergies: Coded Allergies: No Known Allergies (Unverified , 01/06/20) Triage Vital Signs Vital Signs Date Time Temp Pulse Resp B/P (MAP) Pulse Ox O2 Delivery O2 Flow Rate FiO2 03/23/20 16:15 97.5 82 18 131/76 100 Room Air Vital signs reviewed: Yes Physical Exam CONSTITUTIONAL Constitutional: Present well-developed, Present well-nourished HENT HENT: Present normocephalic, Present atraumatic, Present oropharynx clear/moist, Present nose normal HENT L/R: Present left ext ear normal, Present right ext ear normal EYES Eyes: Reports PERRL, Reports conjunctivae normal NECK Neck: Present ROM normal PULMONARY Pulmonary: Present effort normal, Present breath sounds normal CARDIOVASCULAR Cardiovascular: Present regular rhythm, Present heart sounds normal, Present capillary refill normal, Present normal rate GASTROINTESTINAL Abdominal: Present soft, Present bowel sounds normal, Present tender (RIGHT UPPER) GENITOURINARY Genitourinary: Present exam deferred SKIN Skin: Present warm, Present dry MUSCULOSKELETAL Musculoskeletal: Present ROM normal NEUROLOGICAL Neurological: Present alert, Present oriented x 3, Present no gross motor or sensory deficits PSYCHOLOGICAL Psychological: Present mood/affect normal, Present judgement normal Results Laboratory Lab results reviewed: Yes Imaging Imaging results reviewed: Yes Assessment & Plan Medical Decision Making MDM [employer] Reassessment Reassessment time: 18:04 Reassessment BETTER Assessment & Plan Final Impression: (1) Abdominal pain, right upper quadrant (2) Musculoskeletal pain Last Vital Signs Date Time Temp Pulse Resp B/P (MAP) Pulse Ox O2 Delivery O2 Flow Rate FiO2 03/23/20 16:15 97.5 82 18 131/76 100 Room Air Home Meds Active Scripts Naproxen (NAPROXEN) 250 Mg Tablet, 500 MG PO BID for back pain, #30 TAB 0 Re fills Prov:JOSHUA ROMAN MD 01/06/20 Cyclobenzaprine Hcl (CYCLOBENZAPRINE HCL) 10 Mg Tablet, 10 MG PO TID PRN for muscle spasm, #20 TAB 0 Refills Prov:JOSHUA ROMAN MD 01/06/20 Acetaminophen With Codeine (TYLENOL WITH CODEINE #3 TABLET) 1 Each Tablet, 1-2 TAB PO Q6H for pain, #20 TAB 0 Refills DO NOT take and drive or operate machinery Prov:JOSHUA ROMAN MD 01/06/20 Medications in the ED Ketorolac Tromethamine 15 mg ONCE STAT IV Last administered on 03/23/20at 16:41; Admin Dose 15 MG; Start 03/23/20 at 16:28; Stop 03/23/20 at 16:35; Status DC Ketorolac Tromethamine 30 mg STK-MED ONCE .ROUTE ; Start 03/23/20 at 16:48; Stop 03/23/20 at 16:44; Status DC RAJENDRA JIMENEZ MD Mar 23, 2020 17:48
[2020-03-23] MEDS ORDERED: NAPROSYN500 MG PO (18:07)
[2020-03-23] MEDS ORDERED: CYCLOBENZAPRINE5 MG PO (18:07)
== END 2020-03-23 18:29 | disposition home or self-care (01) ==
LOC: FSED 16:34
DX: R10.11 Right upper quadrant pain (principal); M79.18 Myalgia, other site; F17.210 Nicotine dependence, cigarettes, uncomplicated
CPT/HCPCS: 76705; 80053; 80076; 81003; 85025; 99284; J1885

== ENCOUNTER → 2020-08-22 | Emergency (ER) | payer MEDICARE, OTHER ==
[~2020-08-22] VITALS: Ht 160 cm; Wt 124.7 kg
[~2020-08-22] MED LIST changes: +CYCLOBENZAPRINE5 MG PO; +KETOROLAC TROMETHAMINE 30 MG/ML VIAL IV STA; +KETOROLAC TROMETHAMINE 30 MG/ML VIAL ONE; +NAPROSYN500 MG PO
[2020-08-22 01:41] VITALS: BP 127/59
== END | disposition home or self-care (01) ==
LOC: FSED 00:36
DX: R07.9 Chest pain, unspecified (principal); R06.02 Shortness of breath; R11.0 Nausea; F17.210 Nicotine dependence, cigarettes, uncomplicated
CPT/HCPCS: 71046; 80048; 81025; 84484; 85025; 85379; 93005; 99284; J1885

== ENCOUNTER 2022-10-06 10:11 | Emergency (ER) | payer MEDICARE, OTHER ==
[~2022-10-06] VITALS: Ht 160 cm; Wt 117.6 kg
[~2022-10-06 10:11] MED LIST changes: +BENZONATATE100 MG PO; +FLONASE ALLERG9.9 ML INH; -KETOROLAC TROMETHAMINE 30 MG/ML VIAL IV STA; -KETOROLAC TROMETHAMINE 30 MG/ML VIAL ONE; +MUCINEX DM ER1 EACH PO; +ONDANSETRON ODT4 MG PO
[2022-10-06] MEDS ORDERED: ONDANSETRON HCL INJ 2MG/ML 2ML 2 MG/ML VIAL IV STA (11:04)
[2022-10-06] MEDS ORDERED: FAMOTIDINE 20 MG/2 ML VIAL IV STA (11:04)
[2022-10-06] MEDS ORDERED: LACTATED RINGER'S 1,000 ML IV ONE (11:15)
[2022-10-06] MEDS ORDERED: FAMOTIDINE 20 MG/2 ML VIAL IV ONE (11:39)
[2022-10-06] MEDS ORDERED: ONDANSETRON HCL INJ 2MG/ML 2ML 2 MG/ML VIAL ONE (11:39)
[2022-10-06] MEDS ORDERED: LACTATED RINGER'S 1,000 ML ONE (11:39)
[2022-10-06] MEDS ORDERED: IOPAMIDOL 370 MG/ML 100 ML INFUS..BTL INJ ONE (12:14)
[2022-10-06] MEDS ORDERED: ONDANSETRON ODT4 MG PO (13:20)
[2022-10-06 14:25] VITALS: O2SAT 98
== END 2022-10-06 14:22 | disposition home or self-care (01) ==
LOC: FSED 10:56
DX: R11.2 Nausea with vomiting, unspecified (principal); R10.32 Left lower quadrant pain; R51.9 Headache, unspecified; R53.83 Other fatigue; F17.210 Nicotine dependence, cigarettes, uncomplicated
CPT/HCPCS: 74177; 80053; 81003; 85025; 99284; J2405; J7121; Q9967

== ENCOUNTER 2024-12-04 17:46 | Emergency (ER) | payer MEDICARE, OTHER ==
[~2024-12-04] VITALS: Ht 160 cm; Wt 126.3 kg
[2024-12-04 17:50] VITALS: PULSE 88; RESP 18; TEMP 98.4
[2024-12-04] MEDS: FAMOTIDINE 20 MG/2 ML VIAL IV ONE (18:29)
[2024-12-04] MEDS ORDERED: MAALOX MAXIMUM355 ML PO (19:09)
[2024-12-04] MEDS ORDERED: PANTOPRAZOLE SO40 MG PO (19:09)
[2024-12-04 19:31] VITALS: BP 140/67; PULSE 76; RESP 18; TEMP 98.4; O2SAT 96
== END 2024-12-04 19:31 | disposition home or self-care (01) ==
LOC: FSED 18:00
DX: R07.9 Chest pain, unspecified (principal); R22.43 Localized swelling, mass and lump, lower limb, bilateral; F17.210 Nicotine dependence, cigarettes, uncomplicated; R53.81 Other malaise
CPT/HCPCS: 71046; 80053; 81003; 81025; 83880; 84484; 85025; 85379; 93005; 99283; J1308